=== PATIENT | female | born 1940 | race Caucasian/White ===

== ENCOUNTER → 2016-09-29 | Outpatient (CLI) | payer MEDICARE ==
[~2016-09-29] MED LIST: E-Z-PAQUE 96% w/w SUSP 176GM BTL As Ordered ONE; VARIBAR NECTAR 40% w/v 240ML SUSP BTL As Ordered ONE; VARIBAR PUDDING 40% w/v 230ML TUBE As Ordered ONE
--- NOTE | 2016-09-29 14:11 | REP ---
COOKIE SWALLOW: The procedure was performed under the direct supervision of Dr. Miguel. The procedure was performed with Nichole Farmer from speech pathology present. 5 mL aliquots of nectar, pudding, solid, and thin-consistency barium was administered. There is no evidence of penetration or aspiration. A detailed report of this examination will be provided by speech pathology. 33 seconds of fluoroscopy time was utilized for this procedure. Reviewed by MEJIA Gregg 09/29/2016 04:55 PEdited and Signed by Andrew Miguel MD 09/29/2016 07:52 P
== END ==
LOC: M RAD 10:03
PROVIDERS: ATTEND Family Medicine
DX: R13.10 Dysphagia, unspecified (principal)
CPT/HCPCS: 74230; 92611; G8996; G8997; G8998

== ENCOUNTER → 2018-07-27 | Outpatient (REF) | payer MEDICARE | LOC: EEVIPCON 17:00 → M LAB REF 17:00 | PROVIDERS: ATTEND Podiatrist Foot & Ankle Surgery | DX: L03.032 Cellulitis of left toe (principal) ==

== ENCOUNTER → 2020-03-11 | Outpatient (CLI) | payer SELFPAY | LOC: M LABSMTC 13:43 | PROVIDERS: ATTEND Family Medicine | DX: Z20.828 Contact with and (suspected) exposure to other viral communicable diseases (principal) ==

== ENCOUNTER 2020-06-24 18:28 | Emergency (ER) | payer MEDICARE ==
[~2020-06-24] VITALS: Ht 162.6 cm; Wt 70.5 kg
[2020-06-24] MEDS ORDERED: VITA50005 (18:41)
[2020-06-24] MEDS ORDERED: SERT50TA29 (18:41)
[2020-06-24] MEDS ORDERED: EZET10TA21 (18:41)
[2020-06-24] MEDS ORDERED: HYDR12CA (18:41)
[2020-06-24] MEDS ORDERED: LEVO75TA4 (18:41)
[2020-06-24 19:24] LABS: BASO % 0.5 % (0.0-1.0); EOS # 0.3 10^3/uL (0.0-0.5); EOS % 3.3 % (0.0-3.0); HEMATOCRIT 40.1 % (36.0-47.0); LYMPH # 2.6 10^3/uL (1.5-5.0); LYMPH % 33.2 % (24.0-44.0); MEAN CORPUSCULAR HEMOGLOBIN 29.1 pg (27.0-33.0); MEAN CORPUSCULAR HGB CONC 32.4 g/dl (32.0-36.5); MEAN CORPUSCULAR VOLUME 89.9 fl (80.0-96.0); MONO # 0.6 10^3/uL (0.0-0.8); MONO % 6.9 % (2.0-8.0); NEUTROPHILS # 4.5 10^3/uL (1.5-8.5); PLATELET COUNT, AUTOMATED 285 10^3/uL (150-450); RED BLOOD COUNT 4.46 10^6/uL (4.00-5.40)
[2020-06-24 19:59] LABS: ALBUMIN 3.6 GM/DL (3.2-5.2); ALT/SGPT 30 U/L (12-78); BILIRUBIN,DIRECT < 0.1 MG/DL (0.0-0.2); BILIRUBIN,TOTAL 0.3 MG/DL (0.2-1.0); LIPASE 128 U/L (73-393); TOTAL PROTEIN 7.2 GM/DL (6.4-8.2)
[2020-06-24 21:13] LABS: RSV AMPLIFICATION NEGATIVE (NEGATIVE)
[2020-06-24 22:15] VITALS: BP 139/64
--- NOTE | 2020-06-25 00:35 | ECGEPIP ---
[facility] - ED Test Date: 2020-06-24 Pat Name: EMILE MURRAY Department: Room: - Gender: Female Scaffolder: LR : 1940 Requested By: CHALINO Ledbetter Order Number: [id number] Reading MD: Tirso Hernandez Measurements Intervals [place] Rate: 84 P: 11 AK: 176 QRS: -10 QRSD: 72 T: -13 QT: 376 QTc: 444 Interpretive Statements Sinus rhythm with marked sinus arrhythmia Inferior infarct , age undetermined NO PRIORS FOR COMPARISON Electronically Signed on 06-25-2020 0:35:21 EST by Tirso Hernandez
== END 2020-06-24 22:35 | disposition home or self-care (01) ==
LOC: M ED 18:28
DX: K52.9 Noninfective gastroenteritis and colitis, unspecified (principal); E78.5 Hyperlipidemia, unspecified; K21.9 Gastro-esophageal reflux disease without esophagitis; E03.9 Hypothyroidism, unspecified; M19.91 Primary osteoarthritis, unspecified site; F41.9 Anxiety disorder, unspecified; F33.9 Major depressive disorder, recurrent, unspecified; Z87.891 Personal history of nicotine dependence; Z88.0 Allergy status to penicillin; Z88.2 Allergy status to sulfonamides; Z88.6 Allergy status to analgesic agent; Z79.890 Hormone replacement therapy; Z79.899 Other long term (current) drug therapy

== ENCOUNTER → 2021-04-02 | Outpatient (REF) ==
[~2021-04-02] MED LIST changes: -E-Z-PAQUE 96% w/w SUSP 176GM BTL As Ordered ONE; +ERGO500029; +EZET10TA21; +HYDR12CA; +LEVO75TA4; +SERT50TA29; -VARIBAR NECTAR 40% w/v 240ML SUSP BTL As Ordered ONE; -VARIBAR PUDDING 40% w/v 230ML TUBE As Ordered ONE
== END ==
LOC: M LABSMTC 11:25
PROVIDERS: ATTEND Pediatrics
DX: Z20.822 Contact with and (suspected) exposure to COVID-19 (principal)

== ENCOUNTER 2021-08-11 10:12 | Emergency (ER) | payer MEDICARE ==
[~2021-08-11] VITALS: Ht 162.6 cm; Wt 75.0 kg
[2021-08-11] MEDS ORDERED: GI COCKTAIL 50ML BTL(HYOSCYAMINE/MAALOX/LIDOCAINE VISCOUS)(1:3:1) PO ONE (10:40)
[2021-08-11 10:55] LABS: BASO # 0.1 10^3/uL (0.0-0.2); BASO % 0.7 % (0.0-1.0); EOS # 0.2 10^3/uL (0.0-0.5); EOS % 2.8 % (0.0-3.0); HEMOGLOBIN 12.4 g/dl (12.0-15.5); LYMPH # 2.2 10^3/uL (1.5-5.0); LYMPH % 25.8 % (24.0-44.0); MEAN CORPUSCULAR HEMOGLOBIN 29.7 pg (27.0-33.0); MEAN CORPUSCULAR HGB CONC 33.5 g/dl (32.0-36.5); MEAN CORPUSCULAR VOLUME 88.7 fl (80.0-96.0); MONO # 0.6 10^3/uL (0.0-0.8); MONO % 7.2 % (2.0-8.0); NEUTROPHILS # 5.3 10^3/uL (1.5-8.5); NEUTROPHILS % 63.3 % (36.0-66.0); PLATELET COUNT, AUTOMATED 232 10^3/uL (150-450); RED BLOOD COUNT 4.17 10^6/uL (4.00-5.40); WHITE BLOOD COUNT 8.3 10^3/uL (4.0-10.0)
[2021-08-11 11:05] LABS: INR 0.87; PROTHROMBIN TIME 12.2 SECONDS (12.7-14.5)
[2021-08-11 11:06] LABS: PARTIAL THROMBOPLASTIN TIME 26.6 SECONDS (25.9-37.0)
[2021-08-11 11:20] LABS: CK-MB VALUE MASS 2.3 NG/ML (<3.6); MB/CK RELATIVE INDEX 1.8 (< OR =4)
[2021-08-11 11:23] LABS: ALBUMIN 3.6 GM/DL (3.2-5.2); ALT/SGPT 26 U/L (12-78); BILIRUBIN,DIRECT < 0.1 MG/DL (0.0-0.2); BILIRUBIN,TOTAL 0.3 MG/DL (0.2-1.0); BLOOD UREA NITROGEN 20 MG/DL (7-18); CALCIUM LEVEL 9.2 MG/DL (8.8-10.2); CARBON DIOXIDE LEVEL 26 MEQ/L (21-32); CHLORIDE LEVEL 113 MEQ/L (98-107); CREATININE FOR GFR 0.84 MG/DL (0.55-1.30); GLOMERULAR FILTRATION RATE > 60.0 (>39); GLUCOSE, FASTING 89 MG/DL (70-100); LIPASE 100 U/L (73-393); NT-PRO BNP 103 PG/ML (<450); POTASSIUM SERUM 4.1 MEQ/L (3.5-5.1); SODIUM LEVEL 143 MEQ/L (136-145); THYROID STIMULATING HORMONE 0.417 uIU/ML (0.358-3.740); TOTAL PROTEIN 6.8 GM/DL (6.4-8.2)
[2021-08-11 13:59] LABS: CK-MB VALUE MASS 1.7 NG/ML (<3.6); MB/CK RELATIVE INDEX 1.62 (< OR =4)
[2021-08-11] MEDS ORDERED: ISOVUE-370 76% 100ML VIAL As Ordered ONE (14:29)
[2021-08-11] MEDS ORDERED: NITROGLYCERIN 2% OINT 1 GM *U/D* PKT TOP ONE (14:55)
[2021-08-11 15:15] VITALS: BP 169/79
[2021-08-11] MEDS ORDERED: KETOROLAC 30 MG/ML 1ML VIAL IV ONE (15:45)
[2021-08-11 15:56] LABS: RSV AMPLIFICATION NEGATIVE (NEGATIVE)
[2021-08-11] MEDS ORDERED: HYDR-3490 PO (16:25)
[2021-08-11 16:31] VITALS: BP 159/85
== END 2021-08-11 17:12 | disposition home or self-care (01) ==
LOC: M ED 10:12
DX: R07.9 Chest pain, unspecified (principal); I10 Essential (primary) hypertension; R94.31 Abnormal electrocardiogram [ECG] [EKG]; F17.200 Nicotine dependence, unspecified, uncomplicated; K21.9 Gastro-esophageal reflux disease without esophagitis; J45.909 Unspecified asthma, uncomplicated; Z88.0 Allergy status to penicillin; Z88.2 Allergy status to sulfonamides; Z88.1 Allergy status to other antibiotic agents; Z79.890 Hormone replacement therapy; Z79.899 Other long term (current) drug therapy
CPT/HCPCS: 71045; 71275; 80048; 80076; 82550; 82553; 83690; 83880; 84443; 84484; 85025; 85610; 85730; 87631; 93005; 93041; 93971; 94760; 96374; 99285; J1885; Q9967

== ENCOUNTER → 2021-08-17 | Outpatient (REF) | payer MEDICARE ==
[~2021-08-17] MED LIST changes: +HYDR-3490 PO
== END ==
LOC: M LAB REF 20:02
PROVIDERS: ATTEND Family Medicine
DX: R10.9 Unspecified abdominal pain (principal); R19.7 Diarrhea, unspecified

== ENCOUNTER → 2021-08-17 | Outpatient (REF) | payer MEDICARE | LOC: M LAB REF 12:04 | PROVIDERS: ATTEND Family Medicine | DX: R10.9 Unspecified abdominal pain (principal); R19.7 Diarrhea, unspecified ==

== ENCOUNTER → 2021-08-21 | Outpatient (REF) | payer MEDICARE ==
[2021-08-21 13:55] LABS: CK-MB VALUE MASS 2.8 NG/ML (<3.6); MB/CK RELATIVE INDEX 1.51 (< OR =4)
== END ==
LOC: M LAB REF 13:12
PROVIDERS: ATTEND Internal Medicine
DX: R07.9 Chest pain, unspecified (principal)

== ENCOUNTER → 2022-01-12 | Outpatient (REF) | payer MEDICARE ==
[2022-01-12 15:29] LABS: C REACTIVE PROTEIN QUANTITATIV < 0.30 MG/DL (0.00-0.30)
[2022-01-12 15:36] LABS: BACTERIA, URINE MOD AMOUNT; SQUAMOUS EPITHELIAL CELL URINE SMALL AMOUNT /hpf (SMALL AMT); WBC, URINE TNTC /hpf (0-3)
[2022-01-12 16:11] LABS: VITAMIN B12 LEVEL 415 PG/ML (247-911)
== END ==
LOC: M LAB REF 14:52
PROVIDERS: ATTEND Internal Medicine
DX: M79.10 Myalgia, unspecified site (principal); R26.9 Unspecified abnormalities of gait and mobility; R31.9 Hematuria, unspecified; N39.0 Urinary tract infection, site not specified

== ENCOUNTER 2022-07-07 16:16 | Inpatient (IN) | payer MEDICARE ==
[~2022-07-07] VITALS: Ht 160 cm; Wt 71.7 kg
[~2022-07-07 16:16] MED LIST changes: -EZET10TA21; +EZET10TA21 PO; -LEVO75TA4; +LEVO75TA4 PO; -SERT50TA29; +SERT50TA29 PO
[2022-07-07 17:21] LABS: BASO # 0.1 10^3/uL (0.0-0.2); BASO % 0.8 % (0.0-1.0); EOS # 0.2 10^3/uL (0.0-0.5); HEMATOCRIT 35.8 % (36.0-47.0); LYMPH # 2.5 10^3/uL (1.5-5.0); LYMPH % 32.7 % (24.0-44.0); MEAN CORPUSCULAR HEMOGLOBIN 30.3 pg (27.0-33.0); MEAN CORPUSCULAR HGB CONC 33.5 g/dl (32.0-36.5); MEAN CORPUSCULAR VOLUME 90.4 fl (80.0-96.0); MONO # 0.5 10^3/uL (0.0-0.8); MONO % 6.5 % (2.0-8.0); NEUTROPHILS # 4.3 10^3/uL (1.5-8.5); NEUTROPHILS % 56.6 % (36.0-66.0); PLATELET COUNT, AUTOMATED 250 10^3/uL (150-450); RED BLOOD COUNT 3.96 10^6/uL (4.00-5.40); WHITE BLOOD COUNT 7.6 10^3/uL (4.0-10.0)
[2022-07-07] MEDS ORDERED: ISOVUE-370 76% 100ML VIAL As Ordered ONE (17:32)
[2022-07-07 17:55] LABS: CPK CREATINE PHOSPHOKINASE 99 U/L (34-145)
[2022-07-07 17:59] LABS: ALBUMIN 3.5 G/DL (3.2-5.2); ALKALINE PHOSPHATASE 63 U/L (46-116); ALT/SGPT 21 U/L (7.0-40); AST/SGOT 17 U/L (<34); BILIRUBIN,DIRECT 0.1 MG/DL (<0.4); BILIRUBIN,TOTAL 0.4 MG/DL (0.3-1.2); BLOOD UREA NITROGEN 32 MG/DL (9-23); CALCIUM LEVEL 8.4 MG/DL (8.3-10.6); CARBON DIOXIDE LEVEL 25 MMOL/L (20-31); CHLORIDE LEVEL 105 MMOL/L (98-107); CK-MB VALUE MASS 1.9 NG/ML (<3.6); CREATININE FOR GFR 0.89 MG/DL (0.55-1.30); GLOMERULAR FILTRATION RATE > 60.0 (>39); GLUCOSE, FASTING 89 MG/DL (74-106); MB/CK RELATIVE INDEX 1.91 (< OR =4); POTASSIUM SERUM 3.9 MMOL/L (3.5-5.1); SODIUM LEVEL 140 MMOL/L (136-145); TOTAL PROTEIN 6.5 G/DL (5.7-8.2)
[2022-07-07 18:06] LABS: RSV AMPLIFICATION NEGATIVE (NEGATIVE)
[2022-07-07] MEDS ORDERED: FUROSEMIDE 40MG/4ML VIAL IV ONE (18:35)
[2022-07-07] MEDS ORDERED: hydrALAZINE 20MG/ML 1ML VIAL IV ONE (19:15)
[2022-07-07] MEDS ORDERED: ACETAMINOPHEN TAB 650MG DOSE (2X325MG) PO PRN (19:35)
[2022-07-07 19:42] LABS: CK-MB VALUE MASS 1.7 NG/ML (<3.6)
[2022-07-07 19:43] LABS: MB/CK RELATIVE INDEX 1.93 (< OR =4)
[2022-07-07] MEDS ORDERED: ERGO500029 PO (20:04)
[2022-07-07] MEDS ORDERED: ROSU5TAB5 PO (20:04)
[2022-07-07] MEDS ORDERED: HYDR-3490 PO (20:04)
[2022-07-07] MEDS ORDERED: HOME MED LIST COMPLETE! XX SCH (20:10)
[2022-07-07] MEDS ORDERED: ROSUVASTATIN 10 MG TAB (CRESTOR) PO SCH (21:00)
[2022-07-07 21:05] VITALS: BP 126/61
[2022-07-07 22:20] VITALS: BP 149/89
[2022-07-07] MEDS: ENOXAPARIN 40MG/0.4ML SYRINGE (J1650 PER 10MG) SC SCH ×2 (22:29→22:31)
[2022-07-08] VITALS (7 sets, daily range): BP systolic 114–151; BP diastolic 52–71
[2022-07-08] MEDS ORDERED: PILL CUTTER 1 EACH XX PRN (01:55)
[2022-07-08 05:34] LABS: HEMATOCRIT 37.3 % (36.0-47.0); HEMOGLOBIN 12.2 g/dl (12.0-15.5); MEAN CORPUSCULAR HEMOGLOBIN 29.1 pg (27.0-33.0); MEAN CORPUSCULAR HGB CONC 32.7 g/dl (32.0-36.5); PLATELET COUNT, AUTOMATED 257 10^3/uL (150-450); RED BLOOD COUNT 4.19 10^6/uL (4.00-5.40); WHITE BLOOD COUNT 7.6 10^3/uL (4.0-10.0)
[2022-07-08 06:00] LABS: ALBUMIN 3.6 G/DL (3.2-5.2); ALKALINE PHOSPHATASE 63 U/L (46-116); ALT/SGPT 22 U/L (7.0-40); AST/SGOT 17 U/L (<34); BILIRUBIN,TOTAL 0.4 MG/DL (0.3-1.2); BLOOD UREA NITROGEN 30 MG/DL (9-23); CALCIUM LEVEL 8.9 MG/DL (8.3-10.6); CARBON DIOXIDE LEVEL 27 MMOL/L (20-31); CHLORIDE LEVEL 105 MMOL/L (98-107); CREATININE FOR GFR 0.92 MG/DL (0.55-1.30); GLOMERULAR FILTRATION RATE > 60.0 (>39); GLUCOSE, FASTING 97 MG/DL (74-106); MAGNESIUM LEVEL 1.9 MG/DL (1.8-2.4); POTASSIUM SERUM 3.9 MMOL/L (3.5-5.1); SODIUM LEVEL 141 MMOL/L (136-145); TOTAL PROTEIN 6.6 G/DL (5.7-8.2)
[2022-07-08] MEDS ORDERED: LEVOTHYROXINE 75MCG TABLET (0.075MG) PO SCH (06:00)
[2022-07-08] MEDS: SERTRALINE HCL 50 MG TAB PO SCH ×2 (08:10→08:18)
[2022-07-08] MEDS: EZETIMIBE 10MG TABLET (ZETIA) PO SCH ×2 (08:10→08:18)
== END 2022-07-08 14:54 | disposition home or self-care (01) | DRG 312 ==
LOC: M ED 16:16 → M ED INP 19:33 → ENRESERV 21:41 → M ICU 22:26
PROVIDERS: ADMIT Internal Medicine; ATTEND Internal Medicine Nephrology
DX: R55 Syncope and collapse (principal); R07.9 Chest pain, unspecified; E03.9 Hypothyroidism, unspecified; I10 Essential (primary) hypertension; F32.A Depression, unspecified; J45.909 Unspecified asthma, uncomplicated; E78.5 Hyperlipidemia, unspecified; I25.2 Old myocardial infarction; I25.10 Atherosclerotic heart disease of native coronary artery without angina pectoris; Z88.2 Allergy status to sulfonamides; Z88.5 Allergy status to narcotic agent; Z88.0 Allergy status to penicillin; Z88.8 Allergy status to other drugs, medicaments and biological substances; Z79.899 Other long term (current) drug therapy; Z87.891 Personal history of nicotine dependence

== ENCOUNTER → 2022-12-21 | Outpatient (CLI) | payer MEDICARE ==
[~2022-12-21] MED LIST changes: +ERGO500029 PO; +ROSU5TAB5 PO
== END ==
LOC: M PLAIMG 08:58
PROVIDERS: ATTEND Nurse Practitioner Adult Health
DX: M54.50 Low back pain, unspecified (principal); M48.061 Spinal stenosis, lumbar region without neurogenic claudication

== ENCOUNTER → 2023-08-18 | Outpatient (REF) | payer MEDICARE ==
[~2023-08-18] MED LIST changes: +ROSU5TAB40 PO; -ROSU5TAB5 PO
[2023-08-19 12:59] LABS: HEMOGLOBIN A1c 5.3 % (4.0-6.0)
== END ==
LOC: M LAB REF 11:44
PROVIDERS: ATTEND Family Medicine
DX: R73.01 Impaired fasting glucose (principal)